=== PATIENT | female | born 1960 | race Caucasian/White ===

== ENCOUNTER 2017-03-23 04:11 | Observation (INO) | payer OTHER ==
[2017-03-23] VITALS (10 sets, daily range): BP systolic 98–128; BP diastolic 39–74; PULSE 57–86; RESP 16–25; O2SAT 96–100
[~2017-03-23] VITALS: Ht 165.1 cm; Wt 85.6 kg
--- NOTE | 2017-03-23 04:58 | ED.REPORT ---
HPI-Syncope Date of Service Mar 23, 2017 ED Provider: Marquez Perla MD A 56 year old female with a history of Graves disease on Levothyroxine and chronic migraines on 500mg of daily Tylenol presents to the ED via EMS following a syncopal episode that occurred just prior to arrival. Patient reportedly lost consciousness for approx. 2 minutes and hit her head on a door knob. Her dizziness/weakness initially began yesterday but became increasingly worse this morning just prior to the episode. Patient was hypotensive en route to the ED. Recent associated symptoms include abdominal discomfort, nausea, decreased appetite and decreased fluid intake. She describes the pain in her abdomen as a "knot". The patient reportedly attempted to stand following the initial incident and experienced a second syncopal episode. She denies any similar previous episodes. Nursing Notes Stated Complaint: SYNCOPE Chief Complaint: General Complaint Nursing Notes Reviewed: Yes Allergies: Coded Allergies: No Known Allergies (Unverified , 03/23/17) General Time Seen by Provider: 05:11 Chief Complaint Lost consciousness Hx Obtained From: Patient Arrived By: Ambulance Onset Occurred: Just prior to arrival Symptom Duration: 1 - 15 minutes Progression Since Onset: Unchanged Location: : Abdomen Quality: Painful Severity: Current: Mild Severity: Maximum: Moderate Associated with: Reports: Abdominal pain, Dizziness, Weakness Pertinent Negative: Pt denies other symptoms Recent Healthcare: No recent doctor visit, No recent hospitalization Past Medical History Past Medical History Migraines Graves disease Asthma Past Surgical History None reported. Smoking History Former Smoker Social History Alcohol Use: Denies alcohol use Drug Use: Denies drug use Other Social History: Good social support, Local resident Ambulatory Status Independent Review of Systems + decreased appetite + decreased fluid intake Constitutional: Reports: Malaise GI: Reports: Abdominal pain, Nausea Neurologic: Reports: Change LOC, Dizziness, Syncope, Weakness Complete sys rev & neg: except as marked. Physical Exam Initial Vital Signs Vital Signs (First) Date Time Temp Pulse Resp B/P Pulse Ox O2 Delivery O2 Flow Rate FiO2 03/23/17 04:15 36.5 67 16 98/56 100 Room Air Initial VS: Reviewed, Vital signs abnormal Head / Eyes: Atraumatic, Normocephalic, PERRL Neck: Supple, Non-tender, Full range of motion Upper Extremities: Vascular intact, Neuro intact, No swelling, No tenderness Skin: Warm, Dry, No cyanosis Psychiatric: Mood/affect normal, Behavior normal, Normal thought content General/Constitutional: Awake, Alert, No acute distress Respiratory / Chest: Atraumatic, Breath sounds NL, Breath sounds = bilat, No respiratory distress Cardiovascular: Heart rate NL, Regular rhythm, Heart sounds NL Lower Extremity / Pelvis / MS: Atraumatic, Neurologic intact, Vascular intact Neurologic: Oriented X3, Speech NL, No motor deficits, No sensory deficits, CN II - XII intact, Reflexes equal bilat Rectum / Perineum: Atraumatic, No mass Rectal for Blood: Positive: Blood - occult heme + Dark, brown stool Interpretation & Diagnostics Lab Results Interpretation Result Diagram: 03/23/17 0430 03/23/17 0430 Test 03/23/17 04:30 03/23/17 05:12 White Blood Count 12.9th/mm3 (3.8-10.1) Red Blood Count 4.50mil/mm3 (3.90-5.20) Hemoglobin 13.1g/dL (12.0-15.6) Hematocrit 38.7% (35.0-46.0) Mean Corpuscular Volume 86.0fL (81-100) Mean Corpuscular Hemoglobin 29.1pg (27.0-35.0) Mean Corpuscular Hemoglobin Concent 33.9% (32.0-37.0) Red Cell Distribution Width 12.3% (12.3-15.4) Platelet Count 208bil/L (150-400) Neutrophils (%) (Auto) 71.5% (40-74) Lymphocytes (%) (Auto) 21.1% (14-46) Monocytes (%) (Auto) 5.6% (4-12) Eosinophils (%) (Auto) 0.9% (0-5) Basophils (%) (Auto) 0.5% (0-3) Hold Purple Top Tube Received (Received) Hold Blue Top Tube Received (Received) Sodium Level 143mEq/L (134-144) Potassium Level 3.7mEq/L (3.5-5.2) Chloride Level 106mEq/L (97-108) Carbon Dioxide Level 20mmol/L (18-29) Blood Urea Nitrogen 38mg/dL (6-24) Creatinine 0.83mg/dL (0.57-1.00) Estimat Glomerular Filtration Rate 102mL/min (>59) Glucose Level 151mg/dL (60-99) Calcium Level 9.2mg/dL (8.5-10.1) Magnesium Level 2.1mg/dL (1.6-2.6) Total Bilirubin 0.4mg/dL (0.0-1.2) Aspartate Amino Transf (AST/SGOT) 21U/L (0-50) Alanine Aminotransferase (ALT/SGPT) 24U/L (0-32) Alkaline Phosphatase 74U/L (25-150) Troponin T 0.010ug/L (0.0-0.011) Total Protein 6.7g/dL (6.4-8.4) Albumin 3.9g/dL (3.4-5.0) Hold [place] Top Tube Received (Received) Hold Urine Received (Received) Lab Results Interpretation: Data white blood count without significant anemia Point of Care Testing: Troponin normal ECG Interpretation ECG Interpretation: Sinus rhythm Rate 64 bpm Time: 04:21 Interpreted by: ED physician X-Ray Chest Interpretation Chest Xray Interpretation: IMPRESSION: No acute abnormalities Interpretation / Wet Read by: Wet read ED physician CT Head Interpretation IMPRESSION: No acute intracranial traumatic abnormality Study: Head CT no contrast Interpretation / Wet Read by: Interpret - Radiologist ([facility]) Re-Eval/Medical Decision Med Decision/Clinical Course 56-year-old female who had 2 episodes of syncope prior to admission. This had been preceded by about 24 hours of general malaise. She had an episode of vomiting with trace of blood in it. Her stool was guaiac positive dark brown. She was given Protonix and ondansetron. She will be admitted for further evaluation and treatment. Re-Evaluation/Progress #1: Time of Eval: 05:26 Re-Evaluation/Progress Note: Upon examination, the patient experiences two episodes of dark emesis. Sample tests positive for blood. Re-Evaluation/Progress #2: Time of Eval: 05:43 Re-Evaluation/Progress Note: Patient is informed of her reassuring CT results. All of the patient's questions are addressed. Re-Evaluation/Progress #3: Time of Eval: 05:54 Patient Status: Condition improved Re-Evaluation/Progress Note: The patient's nausea has returned and she is currently requesting Zofran. She is informed of her rectal exam results and the plan to admit to the hospital. The patient understands and agrees with the intended treatment plan. Consultation : Referral / Consult Name: Esperanza Palm Consulted With: Hospitalist Call Returned at: 06:09 Cafe Server: Will see patient, Agrees with eval, Agrees with plan, Accepts admit Counseled Regarding: Diagnosis, Lab results, Need for admission Discharge & Departure Impression: Primary Impression: GI bleed GI bleed type/associated pathology: unspecified gastrointestinal hemorrhage type Qualified Code: K92.2 - Gastrointestinal hemorrhage, unspecified Additional Impression: Syncope Syncope type: unspecified Qualified Code: R55 - Syncope and collapse Disposition: ADMITTED TO HOSPITAL Discharge Condition All VS Reviewed: Yes Condition: Stable Referrals: Michaela Suh MD (PCP) Scribe Attestation Portions of this note were transcribed by Darrick Foy. I, Dr. Perla personally performed the history, physical exam and medical decision-making; I reviewed and confirmed the accuracy of the information in the transcribed note. copies to: Michaela Suh MD, Marquez Girard MD Mar 23, 2017 04:58 DARRICK FOY Mar 23, 2017 05:13
[2017-03-23 05:04] LABS: BASOPHILS % (AUTO) 0.5 % (0-3); EOSINOPHILS % (AUTO) 0.9 % (0-5); MONOCYTES % (AUTO) 5.6 % (4-12); Mean Corpuscular Hemoglobin 29.1 pg (27.0-35.0); NEUTROPHILS % (AUTO) 71.5 % (40-74); Platelet Count 208 bil/L (150-400)
[2017-03-23] MEDS ORDERED: 0.9% Sodium Chloride 1,000 ML IV ONE ×2 (05:15→05:22)
[2017-03-23 05:17] LABS: TROPONIN T 0.01 ug/L (0.0-0.011)
[2017-03-23] MEDS ORDERED: Albuterol-Ipratropium 3 mL Inhalation Solution NEB ONE (05:25)
[2017-03-23] MEDS ORDERED: Azithromycin Inj 500 MG in Dextrose 5% w/Vial Mate 250 ML IV ONE (05:25)
[2017-03-23] MEDS ORDERED: cefTRIAXone Inj 2,000 MG in Dextrose 5% Minibag Plus 50 ML IV ONE (05:25)
[2017-03-23] MEDS ORDERED: Albuterol 2.5 mg/3 mL Inhalation Solution NEB ONE (05:25)
[2017-03-23 05:28] LABS: Magnesium 2.1 mg/dL (1.6-2.6)
[2017-03-23] MEDS ORDERED: Pantoprazole 4 mg/mL 10 mL Inj IVPUSH ONE (05:55)
[2017-03-23] MEDS ORDERED: Ondansetron 2 mg/mL 2 mL Inj IVPUSH PRN ×3 (05:55→11:10)
[2017-03-23 06:39] LABS: INR 1.05 ratio
[2017-03-23] MEDS ORDERED: Alum-Mag Hydrox-Simeth 30 mL Suspension PO PRN (06:40)
[2017-03-23] MEDS ORDERED: LEVO100T6 PO (07:54)
[2017-03-23] MEDS ORDERED: KEN25CR TOPICAL (07:54)
[2017-03-23] MEDS ORDERED: FLUT16SP NOSTRIL (07:54)
[2017-03-23] MEDS ORDERED: ACET500C49 PO (07:54)
--- NOTE | 2017-03-23 08:00 | NUR ---
admit Pt arrived on unit at 0650. VS wnl. Pt c/o mild headache and requested Tylenol. SL with two IVs patent and intact. Admission/med rec completed by admit nurse. Pt is alert and oriented X4, DE DIOS, cooperative with care. Fall precautions in place d/t recent syncopal episode. Denies dizziness, steady gait when ambulated to restroom. CTM
--- NOTE | 2017-03-23 08:00 | DRSVH ---
PROCEDURE: X-RAY CHEST ONE VIEW, PORTABLE ([id number]) INDICATIONS: Syncope TECHNIQUE: One view of the chest was acquired. COMPARISON: None. FINDINGS: Surgical changes and devices: laboratory monitor leads are seen over the chest. Lungs and pleura: No pleural effusions or pneumothorax. Lungs are clear. Mediastinum: Mediastinal contours appear normal. Heart size is normal. Bones and chest wall: No suspicious bony lesions. Overlying soft tissues appear unremarkable. IMPRESSION: No abnormality found. Cause of syncope not identified. Dictated by: Macario Laws M.D. on 03/23/2017 at 7:57 Approved by: Macario Laws M.D. on 03/23/2017 at 7:58
--- NOTE | 2017-03-23 08:02 | DRSVH ---
PROCEDURE: CT BRAIN WITHOUT CONTRAST ([id number]) INDICATIONS: SYNCOPE, vomiting, hit head on door TECHNIQUE: Noncontrast 4.5 mm thick angled axial sections acquired from the foramen magnum to the vertex, with c oronal reformats. COMPARISON: None. FINDINGS: Image quality: Excellent. CSF spaces: Basal cisterns are patent. No extra-axial fluid collections. Ventricles are normal in size and shape. Brain: No midline shift. No intracranial masses or hemorrhage. Berman-white matter interface is norm al. Skull and face: Calvarium and visualized facial bones are intact, without suspicious lesions. Soft t issue swelling over the left frontal region. Sinuses: Visualized sinuses and mastoids are clear. IMPRESSION: No acute intracranial abnormality is seen. Dictated by: Macario Laws M.D. on 03/23/2017 at 7:58 Approved by: Macario Laws M.D. on 03/23/2017 at 7:59 this report corresponds to the findings of e preliminary NSR report.
[2017-03-23] MEDS: Fluticasone 0.05% 15 Spray/2 Gm 16 Gm Nasal Spray NOSTRIL SCH (10:30)
[2017-03-23] MEDS ORDERED: 0.9% Sodium Chloride 1,000 ML IV SCH ×3 (10:50→12:50)
[2017-03-23 11:17] LABS: APPEARANCE,URINE CLEAR (CLEAR,HAZY); COLOR,URINE YELLOW (YELLOW); OCCULT BLOOD,URINE TRACE (NEGATIVE); PH,URINE 5.5 (5.0-8.0); UROBILINOGEN,URINE NORMAL (NORMAL)
--- NOTE | 2017-03-23 11:22 | PCM.HPMED ---
Subjective Date of Service Mar 23, 2017 Primary Provider: Admitting Physician: Esperanza Palm DO Primary Care Physician: Michaela Suh MD Attending Physician: Esperanza Palm DO Admit Status: From the Emergency Department, 23-Hour Observation, Admit to [facility], Remote Telemetry Chief Complaint: Syncopal episode, nausea vomiting diarrhea, hematemesis History of Present Illness: This is a 56-year-old female who has a history of Graves's disease with irradiation about 10 years ago currently on levothyroxine therapy. She also has history of chronic migraines and uses Tylenol for this. She notes when she woke up yesterday morning she was having some cramping in her upper abdomen would come and go and did not eat very much she had some nausea with it. She had 2 large bowel movements that morning and then had a third later on in the morning and it was fairly loose dark brown to black in color. He is having some nausea vomiting and in the emergency room she had an episode of vomitus which had blood present per ER report. She also had 2 syncopal episodes in sequence which brought her into the emergency room. She presented to the ER via EMS at approximately 5 AM. She was up to the bathroom and passed out does not recall feeling any issues or lightheadedness. Her son helped stand her up and then she had a another passing out episode. Patient denies any similar episodes in the past. Review of Systems: All other review of systems are reviewed and are negative except for as in history of present illness. Allergies Coded Allergies: No Known Allergies (Unverified , 03/23/17) Home Medications Tylenol 500 mg by mouth every 4 hours when necessary pain Flonase one spray each nostril daily Levothyroxine 100 g by mouth daily PMH Past Medical History Past Medical History Migraines Graves disease with irradiation therapy approximately 10 years ago Asthma/allergies Past Surgical History None reported. Family History Grandfather with a history of stomach cancer Social History Hx Alcohol Use: No (occasionally, like one a month) Hx Substance Use: No Smoking Status: Former Smoker Living Arrangement: with Family Exam Vital Signs Vital Sign - Last Date Time Temp Pulse Resp B/P Pulse Ox O2 Delivery O2 Flow Rate FiO2 03/23/17 07:20 75 03/23/17 06:57 36.9 16 103/54 98 Room Air Intake and Output 03/22/17 03/22/17 03/23/17 Cumulative From/Thru 15:00 23:00 07:00 03/23/17 04:15 - 03/23/17 06:57 Intake Total 999 ml 999 ml Output Total 80 ml 80 ml Balance 919 ml 919 ml Intake IV Total 999 ml 999 ml Output Emesis 40 ml 40 ml Estimated Blood Loss 40 ml 40 ml Exam Constitutional: Middle-aged female in no acute distress Head: Normocephalic atraumatic Eyes: PERRLA BCC EOMI Mouth: No abnormalities noted Neck: No adenopathy Chest: Clear to auscultation Cor: Regular rate and rhythm S1-S2 without murmur Abdomen: Soft nontender bowel sounds present Extremities: No pedal edema Skin: No rashes Psych: Mood and affect are appropriate Neuro: Alert and oriented 3, motor strength is intact bilaterally Lab and Diagnostics Labs Laboratory Tests 72 Hours Test 03/23/17 04:30 03/23/17 05:12 03/23/17 10:25 03/23/17 10:37 White Blood Count 12.9th/mm3 (3.8-10.1) Red Blood Count 4.50mil/mm3 (3.90-5.20) Hemoglobin 13.1g/dL (12.0-15.6) Hematocrit 38.7% (35.0-46.0) Mean Corpuscular Volume 86.0fL (81-100) Mean Corpuscular Hemoglobin 29.1pg (27.0-35.0) Mean Corpuscular Hemoglobin Concent 33.9% (32.0-37.0) Red Cell Distribution Width 12.3% (12.3-15.4) Platelet Count 208bil/L (150-400) Neutrophils (%) (Auto) 71.5% (40-74) Lymphocytes (%) (Auto) 21.1% (14-46) Monocytes (%) (Auto) 5.6% (4-12) Eosinophils (%) (Auto) 0.9% (0-5) Basophils (%) (Auto) 0.5% (0-3) Hold Purple Top Tube Received (Received) Prothrombin Time 11.2sec (8.1-12.5) Prothromb Time International Ratio 1.05ratio Hold Blue Top Tube Received (Received) Sodium Level 143mEq/L (134-144) Potassium Level 3.7mEq/L (3.5-5.2) Chloride Level 106mEq/L (97-108) Carbon Dioxide Level 20mmol/L (18-29) Blood Urea Nitrogen 38mg/dL (6-24) Creatinine 0.83mg/dL (0.57-1.00) Estimat Glomerular Filtration Rate 102mL/min (>59) Glucose Level 151mg/dL (60-99) Calcium Level 9.2mg/dL (8.5-10.1) Magnesium Level 2.1mg/dL (1.6-2.6) Total Bilirubin 0.4mg/dL (0.0-1.2) Aspartate Amino Transf (AST/SGOT) 21U/L (0-50) Alanine Aminotransferase (ALT/SGPT) 24U/L (0-32) Alkaline Phosphatase 74U/L (25-150) Troponin T 0.010ug/L (0.0-0.011) Total Protein 6.7g/dL (6.4-8.4) Albumin 3.9g/dL (3.4-5.0) Hold [place] Top Tube Received (Received) Hold Urine Received (Received) Urine Color Yellow (YELLOW) Urine Appearance Clear (CLEAR,HAZY) Urine pH 5.5 (5.0-8.0) Urine Specific [place] <1.005 (1.003-1.035) Urine Protein Negativemg/dL (NEG,TRACE) Urine Glucose (UA) Negativemg/dL (NEGATIVE) Urine Ketones Negativemg/dL (NEGATIVE) Urine Occult Blood Trace (NEGATIVE) Urine Nitrite Negative (NEGATIVE) Urine Bilirubin Negative (NEGATIVE) Urine Urobilinogen Normalmg/dL (NORMAL) Urine Leukocyte Esterase Small (NEGATIVE) Urine RBC 0-2/hpf (0-2) Urine WBC 6-10/hpf (0-5) Urine Epithelial Cells Occasional/hpf (NONE-MOD) Urine Crystals None seen (NONE SEEN) Urine Bacteria Few/hpf (NONE-FEW) Urine Hyaline Casts None/lpf (NONE) Urine Granular Casts None seen (NONE SEEN) Urine Waxy Casts None seen (NONE SEEN) Urine Red Blood Cell Casts None seen (NONE SEEN) Urine White Blood Cell Casts None seen (NONE SEEN) Urine Mucus None seen (None Seen) Urine Trichomonas None seen (NONE SEEN) Urine Yeast None (NONE SEEN) Urinalysis Comment None Urine Culture Reflexed Indicated Result Diagram: 03/23/1742903/23/17429 Assessment & Plan #Syncopal episodes 2, acute, present on admission -Placed on telemetry -First troponin was negative for recheck troponin currently -By description may have been vasovagal syncope #Nausea vomiting diarrhea, acute, present on admission -Check stool PCR -No bowel movement since admission earlier this morning -May be gastroenteritis related -IV Zofran when necessary nausea vomiting -Give IV fluid hydration normal saline -Placed on by mouth Protonix #Hematemesis 1, acute, present on admission -Recheck hematocrit at this point -Monitor for any signs and symptoms regarding further GI bleeding #Hypothyroidism secondary to treated Graves' disease, chronic, present on admission -Continue with levothyroxine dosing -Check TSH, T4 #DVT prophylaxis -Avoid subcutaneous prophylactic anticoagulation given possibility of GI bleed -Use SCDs while in bed #CODE STATUS -Full code GI Prophylaxis: H2 liv VTE Prophylaxis Indicated: Contraindicated (possible GI bleed) VTE Prophylaxis: SCDs Resuscitation Status: CPR: Attempt Resuscitation Time spent 60 minutes Britni Mohr MD Mar 23, 2017 11:22
[2017-03-23 12:18] LABS: TROPONIN T 0.01 ug/L (0.0-0.011)
--- NOTE | 2017-03-23 15:45 | NUR ---
Social Work- Brief Note Data: EMR reviewed. Pt is on day 1 of hospitalization. Pt discussed in multidisciplinary rounds. Pt is not medically ready for d/c. No d/c needs identified in rounds. Insurance is [employer] of [employer]. PCP is Michaela Suh MD. SW met with pt at bedside to explain SW role. Pt resides in [place] with her 24 y.o. son. Pt is independent at baseline. DPOA Paperwork provided at bedside. No d/c needs identified at this time. SW will continue to follow. Assessment: Pt who is independent at baseline. Plan: Pt to d/c home with son to transport via POV. No d/c needs identified at this time. SW will continue to follow. Laisha Celeste MSW
--- NOTE | 2017-03-24 02:42 | NUR ---
Headache/Migraine pt reported having a headache at HS, pt stated "it started at the back of my head and comes up the right side and makes my eye hurt". pt received second Imitrex dose, verbalized "maybe it isn't working", pt requested Tylenol. pt declined an ice pack but accepted a cool washcloth for her face. pt has been able to sleep during the night with minimal interruptions.pt is A&Ox3. VSS, afebrile, on RA. IVF infusing, site is patent. call light has been placed within reach, pt using appropriately to make needs known. hourly rounding in effect. Addendum: 03/24/17 at 0731 by MILTON CORBETT RN pt reported Tylenol has been effective for pain control.
[2017-03-24 04:45] VITALS: BP 123/67; PULSE 69; RESP 18; O2SAT 94
--- NOTE | 2017-03-24 07:27 | PCM.DIMED ---
Discharge Instructions Date of Service Mar 24, 2017 Dates of Hospitalization Mar 23, 2017 at 06:34 Discharge Diagnosis Discharge Diagnosis Acute gastroenteritis with possible Kailey Capellan tear Diet Discharge Diet: No restrictions Activity Discharge Activity: No restrictions Call your provider Call your provider for: Fever or Chills, Shortness of breath, Bleeding, Chest pain, Vomitting, Excessive diarrhea, Weakness (unilateral) Patient Instructions Follow-up with PCP in: 1 week (and as needed.) Provider: Michaela Shu MD, Cheryl A MD Mar 24, 2017 07:27
--- NOTE | 2017-03-24 07:33 | PCM.DC.MED ---
Discharge Summary Date of Service Mar 24, 2017 Dates of Hospitalization Date of Hospital Admission Mar 23, 2017 at 06:34 Date of Discharge: Mar 24, 2017 Providers: Admitting Physician: Esperanza Palm DO Primary Care Physician: Michaela Suh MD Attending Physician: Britni Mohr MD Diagnosis at Time of Discharge Diagnosis at Time of Discharge Acute gastroenteritis with possible Kailey Capellan tear,syncope x 2 Procedures XRay, CTs & MRIs PROCEDURE: CT BRAIN WITHOUT CONTRAST ([id number]) INDICATIONS: SYNCOPE, vomiting, hit head on door TECHNIQUE: Noncontrast 4.5 mm thick angled axial sections acquired from the foramen magnum to the vertex, with coronal reformats. COMPARISON: None. FINDINGS: Image quality: Excellent. CSF spaces: Basal cisterns are patent. No extra-axial fluid collections. Ventricles are normal in size and shape. Brain: No midline shift. No intracranial masses or hemorrhage. Berman-white matter interface is normal. Skull and face: Calvarium and visualized facial bones are intact, without suspicious lesions. Soft tissue swelling over the left frontal region. Sinuses: Visualized sinuses and mastoids are clear. IMPRESSION: No acute intracranial abnormality is seen. Dictated by: Macario Laws M.D. on 03/23/2017 at 7:58 Approved by: Macario Laws M.D. on 03/23/2017 at 7:59 this report corresponds to the findings of the preliminary NSR report. PROCEDURE: X-RAY CHEST ONE VIEW, PORTABLE ([id number]) INDICATIONS: Syncope TECHNIQUE: One view of the chest was acquired. COMPARISON: None. FINDINGS: Surgical changes and devices: surveillance monitor leads are seen over the chest. Lungs and pleura: No pleural effusions or pneumothorax. Lungs are clear. Mediastinum: Mediastinal contours appear normal. Heart size is normal. Bones and chest wall: No suspicious bony lesions. Overlying soft tissues appear unremarkable. IMPRESSION: No abnormality found. Cause of syncope not identified. Dictated by: Macario Laws M.D. on 03/23/2017 at 7:57 Approved by: Macario Laws M.D. on 03/23/2017 at 7:58 Brief History This is a 56-year-old female who has a history of Graves's disease with irradiation about 10 years ago currently on levothyroxine therapy. She also has history of chronic migraines and uses Tylenol for this. She notes when she woke up yesterday morning she was having some cramping in her upper abdomen would come and go and did not eat very much she had some nausea with it. She had 2 large bowel movements that morning and then had a third later on in the morning and it was fairly loose dark brown to black in color. He is having some nausea vomiting and in the emergency room she had an episode of vomitus which had blood present per ER report. She also had 2 syncopal episodes in sequence which brought her into the emergency room. She presented to the ER via EMS at approximately 5 AM. She was up to the bathroom and passed out does not recall feeling any issues or lightheadedness. Her son helped stand her up and then she had a another passing out episode. Patient denies any similar episodes in the past. Hospital Course #Syncopal episodes 2, acute, present on admission -Placed on telemetry -First troponin was negative for recheck troponin currently -By description may have been vasovagal syncope -Patient has had no further symptoms of lightheadedness or problems ambulating #Nausea vomiting diarrhea, acute, present on admission -Check stool PCR -No bowel movement since admission earlier this morning -May be gastroenteritis related -IV Zofran when necessary nausea vomiting -Give IV fluid hydration normal saline -Placed on by mouth Protonix -No further symptoms and tolerated progression of diet #Hematemesis 1, acute, present on admission -Recheck hematocrit at this point -Monitor for any signs and symptoms regarding further GI bleeding -No further nausea vomiting or diarrhea -Hematocrit has stayed relatively typically stable in light of the fact that patient has been given some IV fluid hydration secondary to dehydration due to nausea vomiting diarrhea #Hypothyroidism secondary to treated Graves' disease, chronic, present on admission -Continue with levothyroxine dosing -Check TSH, T4 which returned within normal limits #DVT prophylaxis -Avoid subcutaneous prophylactic anticoagulation given possibility of GI bleed -Use SCDs while in bed #CODE STATUS -Full code Exam Vital Signs (Last) Date Time Temp Pulse Resp B/P Pulse Ox O2 Delivery O2 Flow Rate FiO2 03/24/17 04:45 36.6 69 18 123/67 94 Room Air Exam Constitutional: Middle-aged female in no acute distress Head: Normocephalic atraumatic Chest: Clear to auscultation Cor: Regular rate and rhythm S1-S2 without murmur Abdomen: Soft nontender bowel sounds present Extremities: No pedal edema Neuro alert and oriented 3, motor strength is intact bilaterally Psych: Mood and affect are appropriate Skin: No rashes Laboratory Tests 72 Hours Test 03/23/17 04:30 03/23/17 05:12 03/23/17 10:37 03/23/17 11:20 White Blood Count 12.9th/mm3 (3.8-10.1) Red Blood Count 4.50mil/mm3 (3.90-5.20) Hemoglobin 13.1g/dL (12.0-15.6) 11.9g/dL (12.0-15.6) Hematocrit 38.7% (35.0-46.0) 35.6% (35.0-46.0) Mean Corpuscular Volume 86.0fL (81-100) Mean Corpuscular Hemoglobin 29.1pg (27.0-35.0) Mean Corpuscular Hemoglobin Concent 33.9% (32.0-37.0) Red Cell Distribution Width 12.3% (12.3-15.4) Platelet Count 208bil/L (150-400) Neutrophils (%) (Auto) 71.5% (40-74) Lymphocytes (%) (Auto) 21.1% (14-46) Monocytes (%) (Auto) 5.6% (4-12) Eosinophils (%) (Auto) 0.9% (0-5) Basophils (%) (Auto) 0.5% (0-3) Hold Purple Top Tube Received (Received) Prothrombin Time 11.2sec (8.1-12.5) Prothromb Time International Ratio 1.05ratio Hold Blue Top Tube Received (Received) Sodium Level 143mEq/L (134-144) Potassium Level 3.7mEq/L (3.5-5.2) Chloride Level 106mEq/L (97-108) Carbon Dioxide Level 20mmol/L (18-29) Blood Urea Nitrogen 38mg/dL (6-24) Creatinine 0.83mg/dL (0.57-1.00) Estimat Glomerular Filtration Rate 102mL/min (>59) Glucose Level 151mg/dL (60-99) Calcium Level 9.2mg/dL (8.5-10.1) Magnesium Level 2.1mg/dL (1.6-2.6) Total Bilirubin 0.4mg/dL (0.0-1.2) Aspartate Amino Transf (AST/SGOT) 21U/L (0-50) Alanine Aminotransferase (ALT/SGPT) 24U/L (0-32) Alkaline Phosphatase 74U/L (25-150) Troponin T 0.010ug/L (0.0-0.011) 0.010ug/L (0.0-0.011) Total Protein 6.7g/dL (6.4-8.4) Albumin 3.9g/dL (3.4-5.0) Hold [place] Top Tube Received (Received) Hold Urine Received (Received) Urine Color Yellow (YELLOW) Urine Appearance Clear (CLEAR,HAZY) Urine pH 5.5 (5.0-8.0) Urine Specific [place] <1.005 (1.003-1.035) Urine Protein Negativemg/dL (NEG,TRACE) Urine Glucose (UA) Negativemg/dL (NEGATIVE) Urine Ketones Negativemg/dL (NEGATIVE) Urine Occult Blood Trace (NEGATIVE) Urine Nitrite Negative (NEGATIVE) Urine Bilirubin Negative (NEGATIVE) Urine Urobilinogen Normalmg/dL (NORMAL) Urine Leukocyte Esterase Small (NEGATIVE) Urine RBC 0-2/hpf (0-2) Urine WBC 6-10/hpf (0-5) Urine Epithelial Cells Occasional/hpf (NONE-MOD) Urine Crystals None seen (NONE SEEN) Urine Bacteria Few/hpf (NONE-FEW) Urine Hyaline Casts None/lpf (NONE) Urine Granular Casts None seen (NONE SEEN) Urine Waxy Casts None seen (NONE SEEN) Urine Red Blood Cell Casts None seen (NONE SEEN) Urine White Blood Cell Casts None seen (NONE SEEN) Urine Mucus None seen (None Seen) Urine Trichomonas None seen (NONE SEEN) Urine Yeast None (NONE SEEN) Urinalysis Comment None Urine Culture Reflexed Indicated Thyroid Stimulating Hormone (TSH) 0.460uIU/mL (0.450-4.500) Free Thyroxine 1.16ng/dL (0.82-1.77) Test 03/24/17 05:20 Hemoglobin 11.5g/dL (12.0-15.6) Hematocrit 34.4% (35.0-46.0) Test 03/23/17 04:30 03/23/17 05:12 03/23/17 10:37 03/23/17 11:20 White Blood Count 12.9th/mm3 (3.8-10.1) Red Blood Count 4.50mil/mm3 (3.90-5.20) Mean Corpuscular Volume 86.0fL (81-100) Mean Corpuscular Hemoglobin 29.1pg (27.0-35.0) Mean Corpuscular Hemoglobin Concent 33.9% (32.0-37.0) Red Cell Distribution Width 12.3% (12.3-15.4) Platelet Count 208bil/L (150-400) Neutrophils (%) (Auto) 71.5% (40-74) Lymphocytes (%) (Auto) 21.1% (14-46) Monocytes (%) (Auto) 5.6% (4-12) Eosinophils (%) (Auto) 0.9% (0-5) Basophils (%) (Auto) 0.5% (0-3) Hold Purple Top Tube Received (Received) Prothrombin Time 11.2sec (8.1-12.5) Prothromb Time International Ratio 1.05ratio Hold Blue Top Tube Received (Received) Sodium Level 143mEq/L (134-144) Potassium Level 3.7mEq/L (3.5-5.2) Chloride Level 106mEq/L (97-108) Carbon Dioxide Level 20mmol/L (18-29) Blood Urea Nitrogen 38mg/dL (6-24) Creatinine 0.83mg/dL (0.57-1.00) Estimat Glomerular Filtration Rate 102mL/min (>59) Glucose Level 151mg/dL (60-99) Calcium Level 9.2mg/dL (8.5-10.1) Magnesium Level 2.1mg/dL (1.6-2.6) Total Bilirubin 0.4mg/dL (0.0-1.2) Aspartate Amino Transf (AST/SGOT) 21U/L (0-50) Alanine Aminotransferase (ALT/SGPT) 24U/L (0-32) Alkaline Phosphatase 74U/L (25-150) Total Protein 6.7g/dL (6.4-8.4) Albumin 3.9g/dL (3.4-5.0) Hold [place] Top Tube Received (Received) Hold Urine Received (Received) Urine Color Yellow (YELLOW) Urine Appearance Clear (CLEAR,HAZY) Urine pH 5.5 (5.0-8.0) Urine Specific [place] <1.005 (1.003-1.035) Urine Protein Negativemg/dL (NEG,TRACE) Urine Glucose (UA) Negativemg/dL (NEGATIVE) Urine Ketones Negativemg/dL (NEGATIVE) Urine Occult Blood Trace (NEGATIVE) Urine Nitrite Negative (NEGATIVE) Urine Bilirubin Negative (NEGATIVE) Urine Urobilinogen Normalmg/dL (NORMAL) Urine Leukocyte Esterase Small (NEGATIVE) Urine RBC 0-2/hpf (0-2) Urine WBC 6-10/hpf (0-5) Urine Epithelial Cells Occasional/hpf (NONE-MOD) Urine Crystals None seen (NONE SEEN) Urine Bacteria Few/hpf (NONE-FEW) Urine Hyaline Casts None/lpf (NONE) Urine Granular Casts None seen (NONE SEEN) Urine Waxy Casts None seen (NONE SEEN) Urine Red Blood Cell Casts None seen (NONE SEEN) Urine White Blood Cell Casts None seen (NONE SEEN) Urine Mucus None seen (None Seen) Urine Trichomonas None seen (NONE SEEN) Urine Yeast None (NONE SEEN) Urinalysis Comment None Urine Culture Reflexed Indicated Troponin T 0.010ug/L (0.0-0.011) Thyroid Stimulating Hormone (TSH) 0.460uIU/mL (0.450-4.500) Free Thyroxine 1.16ng/dL (0.82-1.77) Test 03/24/17 05:20 Hemoglobin 11.5g/dL (12.0-15.6) Hematocrit 34.4% (35.0-46.0) Discharge Medications Discharge Medications Fluticasone Propionate (Fluticasone Propionate Nasal) 16 Gm [place].susp 1 SPRAY NOSTRIL DAILY (Reported) Levothyroxine (Levothyroxine) 100 Mcg Tablet 100 MCG PO DAILY (Reported) Triamcinolone Acet (Triamcinolone Acetonide Cream) 1 Applic/0.25 Gm Cr 1 APPLIC TOPICAL DAILY (Reported) As needed Acetaminophen (Acetaminophen) 500 Mg Capsule 500 MG PO Q4-6H PRN PRN For Pain ( Reported) Followup Plan Discharge Diet: No restrictions Discharge Activity: No restrictions Follow-up with PCP in: 1 week (and as needed.) Provider: Michaela Suh MD Time spent 40 minutes Britni Mohr MD Mar 24, 2017 07:33
[2017-03-24] MEDS: Fluticasone 0.05% 15 Spray/2 Gm 16 Gm Nasal Spray NOSTRIL SCH (08:30)
--- NOTE | 2017-03-24 08:54 | NUR ---
Social Work-discharge: Data:EMR reviewed. Pt is on day 1 of hospitalization for GI Bleed per H&P. Pt is medically stable for discharge today. Pt resides at home with his son who will provide transport home. Per RN notes, pt has been up independent in his room. No anticipated discharge needs. All updated and agreeable to plan. Assessment:Pt who is independent at baseline. Plan:Pt to discharge home when medically stable via POV. No anticipated discharge needs. All updated and agreeable to plan. EMETERIO Blanc Addendum: 03/24/17 at 0909 by BLU FITCH SS Correction: Her son. EMETERIO Blanc
[2017-03-24 09:01] VITALS: PULSE 66
--- NOTE | 2017-03-24 09:58 | NUR ---
Thyroid medication pt states that she must be NPO for two hours before she takes her thyroid medication. She would like take her thyroid medication at noon.
[2017-03-24] MEDS ORDERED: Ketorolac 15 mg/mL Inj IVPUSH ONE (10:40)
[2017-03-24 12:05] VITALS: BP 124/71; PULSE 66; RESP 18; O2SAT 100
--- NOTE | 2017-03-24 13:15 | NUR ---
[id number] paperwork reviewed, no questions at this time. pt denies/pain distress. belongings bagged. pt's friend is transporting her to pt's home via private car. pt prefers to get a W/C ride to car, [employer] will transport when pt's friend arrives.
--- NOTE | 2017-03-24 14:26 | NUR ---
spiritual care: pt request conversational visit. pt shared emotions and thoughts relating to medical event, experiencing a "wake up call" and self-empowering behavior. Pt claimed a lineage of strength including shayy life through her mother and grandmother. Pt welcomed prayer.
== END 2017-03-24 13:25 | disposition home or self-care (01) ==
LOC: EDBD 04:11 → SED 04:11 → MPC 06:34 → INTOOBSV 06:34
PROVIDERS: ADMIT Internal Medicine; ATTEND Specialist
DX: K52.89 Other specified noninfective gastroenteritis and colitis (principal); R55 Syncope and collapse; R11.2 Nausea with vomiting, unspecified; K92.2 Gastrointestinal hemorrhage, unspecified; E03.9 Hypothyroidism, unspecified; E05.00 Thyrotoxicosis with diffuse goiter without thyrotoxic crisis or storm; J45.909 Unspecified asthma, uncomplicated; W18.39XA Other fall on same level, initial encounter; Y93.89 Activity, other specified; Y92.012 Bathroom of single-family (private) house as the place of occurrence of the external cause; Y99.8 Other external cause status; Z86.69 Personal history of other diseases of the nervous system and sense organs; Z87.891 Personal history of nicotine dependence
CPT/HCPCS: 36415; 70450; 71010; 80053; 81000; 83735; 84439; 84443; 84484; 85014; 85018; 85025; 85610; 87086; 87088; 87147; 87507; 93005; 96361; 96374; 96375; 99285; G0378; J1885; J2405; J7030; S0164